=== PATIENT | female | born 1945 | race Hispanic/Latino ===

== ENCOUNTER 2024-10-07 15:36 | Inpatient (IN) | payer MEDICARE ==
[~2024-10-07] VITALS: Ht 157.5 cm; Wt 82.1 kg
[~2024-10-07 15:36] MED LIST: ARICEPT5 MG PO; ASPIRIN CHEW81 MG PO; ATORVASTATIN CA20 MG PO; DOXYCYCLINE HY100 MG PO; ELIQUIS2.5 MG PO; ELIQUIS5 MG PO; FLONASE ALLERG9.9 ML INH; LOPRESSOR25 MG PO; LOSARTAN POTASS25 MG PO; METOPROLOL SUCC25 MG PO; METOPROLOL TART25 MG PO; MIRALAX17 GM PO; NORVASC5 MG PO; OMEGA-3 KRILL1 EACH PO; SENNA PLUS 8.61 EACH PO; ULTRAM 50MG50 MG PO; ULTRAM50 MG PO; VITAMIN C WIT1000 MG PO
[2024-10-07 15:40] VITALS: TEMP 98.4
[2024-10-07 16:01] LABS: BASOPHILS % 0.2 % (0.0-1.0); EOSINOPHILS % 0.2 % (0.0-6.0); HEMATOCRIT 27.4 % (34.2-44.1); HEMOGLOBIN 8.3 g/dL (12.0-16.0); LYMPHOCYTES # (AUTO) 0.7 (1.0-3.2); LYMPHOCYTES % 7.3 % (18.0-39.1); MEAN CORPUSCULAR HEMOGLOBIN 29.9 pg (28-32); MEAN CORPUSCULAR HGB CONC 30.3 g/dL (31-35); MEAN CORPUSCULAR VOLUME 98.6 fL (81-99); MONOCYTES # (AUTO) 0.5 (0.2-0.8); MONOCYTES % 5.8 % (4.4-11.3); NEUTROPHILS # (AUTO) 7.7 (2.1-6.9); NEUTROPHILS % 85.7 % (38.7-80.0); PLATELET COUNT 234 x10e3/uL (140-360); RED BLOOD COUNT 2.78 x10e6/uL (3.6-5.1); RED CELL DISTRIBUTION WIDTH 14.8 % (11.7-14.4); WHITE BLOOD COUNT 8.98 x10e3/uL (4.8-10.8)
[2024-10-07 16:11] LABS: INR 1.97; PROTHROMBIN TIME 23.4 seconds (11.9-14.5)
[2024-10-07 16:12] LABS: PARTIAL THROMBOPLASTIN TIME 34.3 seconds (23.8-35.5)
[2024-10-07] MEDS ORDERED: SODIUM CHLORIDE 0.9% 1000ML 3,000 ML ONE (16:16)
[2024-10-07] MEDS: SODIUM CHLORIDE 0.9% 1000ML 2,450 ML IV SCH (16:19)
[2024-10-07 16:20] LABS: ALBUMIN 2.4 g/dL (3.5-5.0); ALBUMIN/GLOBULIN RATIO 0.9 (0.8-2.0); ANION GAP 15.9 mmol/L (8-16); BILIRUBIN,TOTAL 0.5 mg/dL (0.2-1.2); CALCIUM 7.6 mg/dL (8.4-10.2); CREATININE, SERUM 5.45 mg/dL (0.57-1.11); POTASSIUM 3.9 mmol/L (3.5-5.1)
[2024-10-07 17:10] LABS: BILIRUBIN,URINE NEGATIVE (NEGATIVE); CLARITY,URINE SL CLOUDY (CLEAR); COLOR,URINE YELLOW (YELLOW); GLUCOSE, URINE NEGATIVE (NEGATIVE); KETONES,URINE NEGATIVE (NEGATIVE); LEUKOCYTE ESTERASE ,URINE NEGATIVE (NEGATIVE); NITRITE,URINE POSITIVE (NEGATIVE); PH,URINE 5.5 (5 - 7); PROTEIN,URINE DIPSTICK 2+ (NEGATIVE); URINE UROBILINOGEN 0.2 mg/dL (0.2 - 1)
[2024-10-07 17:29] LABS: RBC,URINE 0-5 /HPF (0-5); WBC,URINE (MAN) 0-5 /HPF (0-5)
[2024-10-07 17:30] LABS: BACTERIA,URINE FEW /HPF; EPITHELIAL CELLS,URINE MANY /LPF
[2024-10-07] MEDS: VANCOMYCIN 1.25GM/250 ML (PEG) 250 ML IV ONE (17:32)
[2024-10-07] MEDS ORDERED: ONDANSETRON HCL INJ 2MG/ML 2ML 2 MG/ML VIAL IV PRN (18:00)
[2024-10-07] MEDS: SODIUM CHLORIDE 0.9% 1000ML 1,000 ML IV SCH (19:01)
[2024-10-07] MEDS: CALCIUM GLUC 1 G/50 ML NACL 100 ML IV ONE (19:01)
[2024-10-07 19:45] VITALS: PULSE 61; RESP 22
[2024-10-07 19:50] VITALS: BP 125/55; PULSE 60; RESP 20; TEMP 97.2; O2SAT 93
[2024-10-07 20:00] VITALS: BP_SYST 125; BP_SYST 127; BP_DIAS 55; BP_DIAS 93; PULSE 60; RESP 20; TEMP 97.2; TEMP 97.5; O2SAT 100; O2SAT 93
[2024-10-07] MEDS ORDERED: TOPROL XL25 MG PO (21:06)
[2024-10-07] MEDS ORDERED: ACETAMINOPHEN 325 MG TAB PO PRN (23:00)
[2024-10-07] MEDS ORDERED: POLYETHYLENE GLYCOL 3350 17 GM PACK PO PRN (23:00)
[2024-10-08] VITALS: BP 142/60; PULSE 89; RESP 19; TEMP 97.4; O2SAT 96
[2024-10-08 04:00] VITALS: BP 153/66; PULSE 62; RESP 19; TEMP 97.2; O2SAT 99
[2024-10-08 06:02] LABS: BASOPHILS # (AUTO) 0.1 (0.0-0.1); BASOPHILS % 0.5 % (0.0-1.0); EOSINOPHILS # (AUTO) 0.1 (0.0-0.4); EOSINOPHILS % 0.5 % (0.0-6.0); HEMATOCRIT 33.6 % (34.2-44.1); HEMOGLOBIN 9.3 g/dL (12.0-16.0); LYMPHOCYTES # (AUTO) 0.9 (1.0-3.2); LYMPHOCYTES % 8.9 % (18.0-39.1); MEAN CORPUSCULAR HGB CONC 27.7 g/dL (31-35); MEAN CORPUSCULAR VOLUME 108.4 fL (81-99); MONOCYTES # (AUTO) 0.7 (0.2-0.8); MONOCYTES % 6.6 % (4.4-11.3); NEUTROPHILS # (AUTO) 8.2 (2.1-6.9); NEUTROPHILS % 82.9 % (38.7-80.0); PLATELET COUNT 222 x10e3/uL (140-360); WHITE BLOOD COUNT 9.83 x10e3/uL (4.8-10.8)
[2024-10-08 06:30] LABS: ALBUMIN 2.5 g/dL (3.5-5.0); ANION GAP 18.1 mmol/L (8-16); BILIRUBIN,TOTAL 0.6 mg/dL (0.2-1.2); CALCIUM 7.6 mg/dL (8.4-10.2); CREATININE, SERUM 5.65 mg/dL (0.57-1.11); POTASSIUM 4.1 mmol/L (3.5-5.1)
[2024-10-08 08:00] VITALS: BP 153/66; PULSE 62; RESP 19; TEMP 97.2; O2SAT 99
[2024-10-08 08:18] VITALS: BP 142/78; PULSE 61; RESP 16; TEMP 98.4; O2SAT 97
[2024-10-08] MEDS ORDERED: NON-FORMULARY MEDICATION (Fluticasone Propionate* (Flonase Allergy Relief*) 1 EACH) INH SCH (09:00)
[2024-10-08] MEDS: METOPROLOL SUCCINATE 25 MG TAB XL PO SCH (09:15)
[2024-10-08] MEDS: APIXABAN 5 MG TABLET PO SCH (09:15)
[2024-10-08] MEDS: FLUTICASONE PROPIONATE NASAL SPRAY NS SCH (11:05)
[2024-10-08 12:05] VITALS: BP 167/64; PULSE 58; RESP 15; TEMP 98.1; O2SAT 99
[2024-10-08] MEDS: Morphine 2mg Syringe 2 MG/ML SYR IV PRN (14:24)
[2024-10-08 14:45] LABS: CREATININE,URINE RANDOM 104.31 mg/dL (47-110); TOTAL PROTEIN, URINE 79.4 mg/dL (1-14)
[2024-10-08 20:00] VITALS: BP 127/93; PULSE 60; RESP 16; TEMP 97.5; O2SAT 100
[2024-10-08] MEDS: DONEPEZIL HCL 5 MG TAB PO SCH (20:20)
[2024-10-08] MEDS: ATORVASTATIN 20 MG TAB PO SCH (20:20)
[2024-10-08 23:44] LABS: % IRON SATURATION 27 % (15-50); IRON 53 ug/dL (50-170); TOTAL IRON BINDING CAPACITY 199 ug/dL (261-478); TRANSFERRIN 142 mg/dL (180-382)
[2024-10-09 04:00] VITALS: BP 136/56; PULSE 60; RESP 18; TEMP 97.5; O2SAT 100
[2024-10-09 06:20] LABS: ANION GAP 19.2 mmol/L (8-16); CALCIUM 7.9 mg/dL (8.4-10.2); CREATININE, SERUM 6.35 mg/dL (0.57-1.11); POTASSIUM 4.2 mmol/L (3.5-5.1)
[2024-10-09 06:55] LABS: MAGNESIUM 1.9 MG/DL (1.3-2.1); PHOSPHORUS 7.6 MG/DL (2.3-4.7)
[2024-10-09 08:46] VITALS: BP 154/62; PULSE 61; RESP 17; TEMP 97.4; O2SAT 100
[2024-10-09 10:49] VITALS: BP 154/62; PULSE 61; RESP 17; TEMP 97.4; O2SAT 100
[2024-10-09 11:49] VITALS: BP 146/59; PULSE 60; RESP 16; TEMP 97.9; O2SAT 98
[2024-10-09 14:22] LABS: ABG HCO3 27 mmol/L (22-26); ABG PCO2 41 mmHg (35-45); ABG PH 7.42 (7.35-7.45); ABG PO2 208 mmHg (80-105); ABG TCO2 28
[2024-10-09 15:05] VITALS: BP 144/58; PULSE 60; RESP 16; TEMP 97.7; O2SAT 98
[2024-10-09] MEDS ORDERED: HEPARIN SOD (PORCINE) 1000 UNIT/ML SDV ONE (17:14)
[2024-10-09] MEDS ORDERED: LIDOCAINE HCL 1% 30ML-PF VIAL ONE (17:16)
[2024-10-09] MEDS: SODIUM BICARBONATE 8.4% VIAL 150 ML in DEXTROSE 5% 1,000 ML IV SCH (18:09)
[2024-10-09 20:00] VITALS: BP 151/70; PULSE 63; RESP 16; TEMP 97.3; O2SAT 99
[2024-10-09] MEDS: CYANOCOBALAMIN 1,000 MCG TAB PO ONE (23:55)
[2024-10-10 05:32] LABS: ANION GAP 19.2 mmol/L (8-16); CALCIUM 7.5 mg/dL (8.4-10.2); CREATININE, SERUM 7.18 mg/dL (0.57-1.11); POTASSIUM 4.2 mmol/L (3.5-5.1)
[2024-10-10 07:34] LABS: ABG HCO3 13 mmol/L (22-26); ABG PCO2 28 mmHg (35-45); ABG PH 7.28 (7.35-7.45); ABG PO2 155 mmHg (80-105); ABG TCO2 14
[2024-10-10] MEDS ORDERED: MANNITOL 25% 12.5GM/50 ML VIAL IV PRN (09:00)
[2024-10-10] MEDS ORDERED: SODIUM CHLORIDE 0.9% 1000ML 2,000 ML IV PRN (09:00)
[2024-10-10 09:20] VITALS: BP 151/70; PULSE 63; RESP 16; TEMP 97.3; O2SAT 99
[2024-10-10 09:56] VITALS: BP 169/73; PULSE 61; RESP 22; TEMP 98.1; O2SAT 100
[2024-10-10] MEDS: CYANOCOBALAMIN 1,000 MCG TAB PO SCH (10:40)
[2024-10-10] MEDS: AMIODARONE HCL 200 MG TAB PO SCH (10:41)
[2024-10-10] MEDS: HEPARIN SOD (PORCINE) 1000 UNIT/ML SDV IV PRN (13:23)
[2024-10-10 14:02] VITALS: BP 149/79; PULSE 60; RESP 18; TEMP 98; O2SAT 99
[2024-10-10 18:49] VITALS: BP 100/62; PULSE 64; RESP 16; TEMP 97.8; O2SAT 99
[2024-10-10 20:00] VITALS: BP_SYST 100; BP_SYST 130; BP_DIAS 62; BP_DIAS 89; PULSE 64; PULSE 82; RESP 16; RESP 18; TEMP 97.5; TEMP 97.8; O2SAT 95; O2SAT 99
[2024-10-10] MEDS: QUETIAPINE FUMARATE 25 MG TAB PO PRN (20:58)
[2024-10-11] VITALS (8 sets, daily range): BP systolic 119–162; BP diastolic 60–119; PULSE 60–89; RESP 18–19; TEMP 97.5–98.3; O2SAT 95–98
[2024-10-11 11:21] LABS: ANION GAP 18.9 mmol/L (8-16); CALCIUM 7.7 mg/dL (8.4-10.2); CREATININE, SERUM 6.77 mg/dL (0.57-1.11); POTASSIUM 3.9 mmol/L (3.5-5.1)
[2024-10-11] MEDS ORDERED: LACTATED RINGER'S 1,000 ML IV ONE (17:15)
[2024-10-11] MEDS: HYDRALAZINE HCL 20 MG/ML VIAL IV PRN (21:13)
[2024-10-11] MEDS: APIXABAN 5 MG TABLET PO SCH (21:13)
[2024-10-11] MEDS: LACTATED RINGER'S 1,000 ML IV ONE (21:13)
[2024-10-12] VITALS (8 sets, daily range): BP systolic 108–150; BP diastolic 48–80; PULSE 79–99; RESP 15–22; TEMP 97.4–98.1; O2SAT 95–100
[2024-10-12 06:10] LABS: COMPLEMENT C3 63 mg/dL (82-167)
[2024-10-12 06:53] LABS: COMPLEMENT C4 11 mg/dL (12-38); HEPATITIS B SURFACE AB QUANT <3.5 mIU/mL (Immunity>10); HEPATITIS BE ANTIGEN Negative (Negative)
[2024-10-12 07:59] LABS: ANION GAP 17.3 mmol/L (8-16); CALCIUM 7.9 mg/dL (8.4-10.2); CREATININE, SERUM 4.6 mg/dL (0.57-1.11)
[2024-10-12 08:00] LABS: POTASSIUM 3.3 mmol/L (3.5-5.1)
[2024-10-13] VITALS (8 sets, daily range): BP systolic 107–169; BP diastolic 58–92; PULSE 75–94; RESP 16–20; TEMP 96.7–98.9; O2SAT 96–100
[2024-10-13 05:58] LABS: HEPATITIS BE ANTIBODY Non Reactive (Negative)
[2024-10-13 06:00] LABS: ANTI DNA DS ANTIBODY <1 IU/mL (0-9)
[2024-10-13] MEDS: DEXTROSE 50% SYRINGE 50 ML IV PRN (07:32)
[2024-10-13 08:08] LABS: ANION GAP 14.5 mmol/L (8-16); CALCIUM 7.8 mg/dL (8.4-10.2); CREATININE, SERUM 3.05 mg/dL (0.57-1.11); POTASSIUM 3.5 mmol/L (3.5-5.1)
[2024-10-13] MEDS ORDERED: FENTANYL CITRATE/PF 100MCG/2 ML INJ ONE (10:11)
[2024-10-13] MEDS ORDERED: SODIUM CHLORIDE 0.9% 250ML 250 ML ONE (10:12)
[2024-10-13] MEDS ORDERED: HEPARIN SOD (PORCINE) 1000 UNIT/ML SDV ONE (10:13)
[2024-10-13] MEDS ORDERED: MIDAZOLAM HCL 2 MG/2 ML VIAL ONE (10:13)
[2024-10-13] MEDS ORDERED: SODIUM CHLORIDE 0.9% 500ML 500 ML ONE (10:33)
[2024-10-13] MEDS ORDERED: LIDOCAINE HCL 1% 30ML-PF VIAL ONE (10:33)
[2024-10-13 15:12] LABS: cANCA TITER <1:20 titer (Neg:<1:20)
[2024-10-13 17:54] LABS: ATYPICAL pANCA TITER <1:20 titer (Neg:<1:20); pANCA TITER <1:20 titer (Neg:<1:20)
[2024-10-14] VITALS (7 sets, daily range): BP systolic 128–146; BP diastolic 67–97; PULSE 87–95; RESP 17–19; TEMP 97.5–98.2; O2SAT 99–100
[2024-10-14 07:46] LABS: HEPATITIS B SURFACE AG (P) Negative (Negative)
[2024-10-14 08:31] LABS: BASOPHILS % 0.5 % (0.0-1.0); EOSINOPHILS # (AUTO) 0.1 (0.0-0.4); EOSINOPHILS % 2.2 % (0.0-6.0); HEMATOCRIT 30.5 % (34.2-44.1); LYMPHOCYTES % 15.4 % (18.0-39.1); MEAN CORPUSCULAR HEMOGLOBIN 29.5 pg (28-32); MEAN CORPUSCULAR HGB CONC 29.5 g/dL (31-35); MONOCYTES # (AUTO) 0.6 (0.2-0.8); MONOCYTES % 8.5 % (4.4-11.3); NEUTROPHILS # (AUTO) 4.8 (2.1-6.9); NEUTROPHILS % 72.9 % (38.7-80.0); PLATELET COUNT 158 x10e3/uL (140-360); RED BLOOD COUNT 3.05 x10e6/uL (3.6-5.1); RED CELL DISTRIBUTION WIDTH 14.8 % (11.7-14.4)
[2024-10-14 08:54] LABS: ANION GAP 14.6 mmol/L (8-16); CALCIUM 7.7 mg/dL (8.4-10.2); CREATININE, SERUM 4.15 mg/dL (0.57-1.11); POTASSIUM 3.6 mmol/L (3.5-5.1)
[2024-10-14] MEDS ORDERED: ALBUMIN 25% 12.5GM 0.25 GM/ML BTL IV PRN (13:30)
[2024-10-14] MEDS ORDERED: HEPARIN SOD (PORCINE) 1000 UNIT/ML SDV IV PRN (13:30)
[2024-10-15] VITALS (8 sets, daily range): BP systolic 111–143; BP diastolic 66–93; PULSE 77–103; RESP 17–20; TEMP 97.5–98.2; O2SAT 94–100
[2024-10-16 04:00] VITALS: BP 145/76; PULSE 97; RESP 18; TEMP 97.7; O2SAT 100
[2024-10-16 05:59] LABS: SPE TOTAL PROTEIN 4.1
[2024-10-16 08:00] VITALS: BP 155/97; PULSE 97; RESP 18; TEMP 98.1; O2SAT 98
[2024-10-16 08:30] VITALS: BP 155/97; PULSE 97; RESP 18; TEMP 98.1; O2SAT 98
[2024-10-16 08:35] LABS: ANION GAP 15.8 mmol/L (8-16); CALCIUM 8.3 mg/dL (8.4-10.2); CREATININE, SERUM 3.65 mg/dL (0.57-1.11); POTASSIUM 3.8 mmol/L (3.5-5.1)
[2024-10-16] MEDS ORDERED: SODIUM CHLORIDE 0.9% 1000ML 2,000 ML IV PRN (10:15)
[2024-10-16] MEDS ORDERED: HEPARIN SOD (PORCINE) 1000 UNIT/ML SDV IV PRN (10:15)
[2024-10-16 11:00] VITALS: BP 144/95; PULSE 101; RESP 20; TEMP 98.3; O2SAT 100
[2024-10-16] MEDS ORDERED: FLONASE ALLERG9.9 ML INH (11:55)
[2024-10-16] MEDS ORDERED: NORVASC5 MG PO (11:55)
[2024-10-16] MEDS ORDERED: AMIODARONE HCL200 MG PO (11:55)
[2024-10-16 16:00] VITALS: BP 144/93; PULSE 101; RESP 18; TEMP 97.8; O2SAT 100
[2024-10-16] MEDS: AMLODIPINE BESYLATE 5 MG TAB PO ONE ×2 (17:08)
[2024-10-16 18:45] LABS: SPE ALPHA 1 GLOBULIN 0.3; SPE ALPHA 2 GLOBULIN 0.7; SPE GAMMA GLOBULIN 0.8
[2024-10-16 18:46] LABS: GLOBULIN TOTAL 2.3; KAPPA LIGHT CHAINS 111.2; KAPPA/LAMBDA RATIO 1.37; LAMBDA LIGHT CHAINS 81.4
[2024-10-16 18:47] LABS: A/G RATIO 0.8
[2024-10-17] MEDS ORDERED: AMLODIPINE BESYLATE 5 MG TAB PO SCH (09:00)
== END 2024-10-16 18:20 | DRG 871 ==
LOC: ER 16:00 → ERHOLD 17:56 → MED/SURG 20:09
PROVIDERS: ADMIT Internal Medicine; ATTEND Internal Medicine
PROC: 3E0333Z Introduction of Anti-inflammatory into Peripheral Vein, Percutaneous Approach (ICD-10-PCS; 2024-10-07)
PROC: 4A133R1 Monitoring of Arterial Saturation, Peripheral, Percutaneous Approach (ICD-10-PCS; principal; 2024-10-08)
PROC: 02H633Z Insertion of Infusion Device into Right Atrium, Percutaneous Approach (ICD-10-PCS; 2024-10-09)
PROC: 5A1D70Z Performance of Urinary Filtration, Intermittent, Less than 6 Hours Per Day (ICD-10-PCS; 2024-10-10)
PROC: 02H633Z Insertion of Infusion Device into Right Atrium, Percutaneous Approach (ICD-10-PCS; 2024-10-13)
PROC: 0JH63XZ Insertion of Tunneled Vascular Access Device into Chest Subcutaneous Tissue and Fascia, Percutaneous Approach (ICD-10-PCS; 2024-10-13)
DX: A41.9 Sepsis, unspecified organism (principal); G92.8 Other toxic encephalopathy; R65.21 Severe sepsis with septic shock; R57.1 Hypovolemic shock; N17.0 Acute kidney failure with tubular necrosis; J18.9 Pneumonia, unspecified organism; E87.20 Acidosis, unspecified; F03.911 Unspecified dementia, unspecified severity, with agitation; F03.94 Unspecified dementia, unspecified severity, with anxiety; R62.7 Adult failure to thrive; F32.A Depression, unspecified; K21.9 Gastro-esophageal reflux disease without esophagitis; E11.22 Type 2 diabetes mellitus with diabetic chronic kidney disease; I12.9 Hypertensive chronic kidney disease with stage 1 through stage 4 chronic kidney disease, or unspecified chronic kidney disease; K81.9 Cholecystitis, unspecified; D63.1 Anemia in chronic kidney disease; E86.1 Hypovolemia; I48.0 Paroxysmal atrial fibrillation; N18.30 Chronic kidney disease, stage 3 unspecified; Z79.01 Long term (current) use of anticoagulants; Z79.82 Long term (current) use of aspirin; Z79.51 Long term (current) use of inhaled steroids; Z96.89 Presence of other specified functional implants; Z95.0 Presence of cardiac pacemaker; Z88.5 Allergy status to narcotic agent
CPT/HCPCS: 36415; 36556; 36558; 70450; 71045; 74176; 74470; 76770; 76937; 77001; 80048; 80053; 81001; 81015; 82550; 82570; 82607; 82746; 82805; 82948; 83540; 83605; 83735; 84100; 84156; 84165; 84466; 85025; 85045; 85610; 85730; 86021; 86039; 86160; 86225; 86706; 86707; 87040; 87086; 87340; 87350; 90962; 93005; 99152; 99284; C1752; C1769; C1892; J0360; J0690; J1644; J2003; J2250; J2270; J2543; J7030; J7040; J7050; J7070; J7799

== ENCOUNTER 2024-10-29 16:36 | Inpatient (IN) | payer MEDICARE ==
[~2024-10-29] VITALS: Ht 165.1 cm; Wt 75.0 kg
[~2024-10-29 16:36] MED LIST changes: +AMIODARONE HCL200 MG PO; +TOPROL XL25 MG PO
[2024-10-29 16:41] VITALS: TEMP 98
[2024-10-29 17:04] LABS: BASOPHILS # (AUTO) 0.1 (0.0-0.1); BASOPHILS % 0.8 % (0.0-1.0); EOSINOPHILS # (AUTO) 0.2 (0.0-0.4); EOSINOPHILS % 2.2 % (0.0-6.0); HEMATOCRIT 30.9 % (34.2-44.1); HEMOGLOBIN 9.7 g/dL (12.0-16.0); LYMPHOCYTES % 27.4 % (18.0-39.1); MEAN CORPUSCULAR HEMOGLOBIN 29.8 pg (28-32); MEAN CORPUSCULAR HGB CONC 31.4 g/dL (31-35); MEAN CORPUSCULAR VOLUME 95.1 fL (81-99); MONOCYTES # (AUTO) 0.7 (0.2-0.8); MONOCYTES % 9.7 % (4.4-11.3); NEUTROPHILS # (AUTO) 4.3 (2.1-6.9); NEUTROPHILS % 59.3 % (38.7-80.0); PLATELET COUNT 146 x10e3/uL (140-360); RED BLOOD COUNT 3.25 x10e6/uL (3.6-5.1); RED CELL DISTRIBUTION WIDTH 15.1 % (11.7-14.4); WHITE BLOOD COUNT 7.25 x10e3/uL (4.8-10.8)
[2024-10-29 17:34] LABS: ALBUMIN 2.9 g/dL (3.5-5.0); ALBUMIN/GLOBULIN RATIO 0.8 (0.8-2.0); ANION GAP 14.7 mmol/L (8-16); BILIRUBIN,TOTAL 1.4 mg/dL (0.2-1.2); CALCIUM 8.8 mg/dL (8.4-10.2); CREATININE, SERUM 2.83 mg/dL (0.57-1.11); POTASSIUM 3.7 mmol/L (3.5-5.1); TOTAL PROTEIN 6.5 g/dL (6.5-8.1)
[2024-10-29] MEDS ORDERED: SODIUM CHLORIDE FLUSH 10 ML SYR INJ PRN (18:30)
[2024-10-29] MEDS ORDERED: ONDANSETRON HCL INJ 2MG/ML 2ML 2 MG/ML VIAL IV PRN (18:30)
[2024-10-29 19:00] VITALS: PULSE 58; RESP 18
[2024-10-29 20:20] VITALS: BP 118/54; PULSE 63; RESP 18; TEMP 97.8; O2SAT 100
[2024-10-29 23:45] VITALS: BP 153/65; PULSE 63; RESP 18; TEMP 97.8; O2SAT 98
[2024-10-29 23:59] VITALS: BP 153/65; PULSE 63; RESP 18; TEMP 97.8; O2SAT 98
[2024-10-30] VITALS (10 sets, daily range): BP systolic 112–177; BP diastolic 51–64; PULSE 66–109; RESP 16–18; TEMP 97.7–98.6; O2SAT 98–100
[2024-10-30] MEDS ORDERED: MIRTAZAPINE7.5 MG PO (02:01)
[2024-10-30] MEDS ORDERED: NYSTATIN1 EAC4 TOP (02:01)
[2024-10-30] MEDS ORDERED: METOPROLOL TART25 MG PO (02:01)
[2024-10-30 05:06] LABS: BASOPHILS % 0.6 % (0.0-1.0); EOSINOPHILS # (AUTO) 0.1 (0.0-0.4); EOSINOPHILS % 1.9 % (0.0-6.0); HEMATOCRIT 28.7 % (34.2-44.1); HEMOGLOBIN 9.2 g/dL (12.0-16.0); LYMPHOCYTES # (AUTO) 1.8 (1.0-3.2); LYMPHOCYTES % 24.5 % (18.0-39.1); MEAN CORPUSCULAR HEMOGLOBIN 29.3 pg (28-32); MEAN CORPUSCULAR HGB CONC 32.1 g/dL (31-35); MEAN CORPUSCULAR VOLUME 91.4 fL (81-99); MONOCYTES # (AUTO) 0.7 (0.2-0.8); MONOCYTES % 9.6 % (4.4-11.3); NEUTROPHILS # (AUTO) 4.5 (2.1-6.9); NEUTROPHILS % 62.8 % (38.7-80.0); PLATELET COUNT 151 x10e3/uL (140-360); RED BLOOD COUNT 3.14 x10e6/uL (3.6-5.1); RED CELL DISTRIBUTION WIDTH 15.4 % (11.7-14.4); WHITE BLOOD COUNT 7.21 x10e3/uL (4.8-10.8)
[2024-10-30 05:33] LABS: ALBUMIN 2.8 g/dL (3.5-5.0); ALBUMIN/GLOBULIN RATIO 0.8 (0.8-2.0); ANION GAP 14.5 mmol/L (8-16); BILIRUBIN,TOTAL 1.5 mg/dL (0.2-1.2); CALCIUM 8.8 mg/dL (8.4-10.2); CREATININE, SERUM 2.65 mg/dL (0.57-1.11); POTASSIUM 3.5 mmol/L (3.5-5.1); TOTAL PROTEIN 6.2 g/dL (6.5-8.1)
[2024-10-30 06:05] LABS: TROPONIN I 0.006 ng/mL (0-0.300)
[2024-10-30] MEDS ORDERED: POLYETHYLENE GLYCOL 3350 17 GM PACK PO PRN ×2 (07:15→13:45)
[2024-10-30] MEDS ORDERED: DEXTROSE 50% SYRINGE 50 ML IV PRN (08:00)
[2024-10-30] MEDS: APIXABAN 5 MG TABLET PO SCH (08:22)
[2024-10-30] MEDS: AMLODIPINE BESYLATE 5 MG TAB PO SCH (08:23)
[2024-10-30] MEDS: AMIODARONE HCL 200 MG TAB PO SCH (08:23)
[2024-10-30] MEDS ORDERED: ACETAMINOPHEN 325 MG TAB PO PRN (13:45)
[2024-10-30] MEDS ORDERED: BISACODYL 10 MG SUPP PR PRN (13:45)
[2024-10-30 14:08] LABS: TROPONIN I 0.011 ng/mL (0-0.300)
[2024-10-30 14:58] LABS: ANION GAP 15.1 mmol/L (8-16); CREATININE, SERUM 2.68 mg/dL (0.57-1.11); POTASSIUM 4.1 mmol/L (3.5-5.1)
[2024-10-30] MEDS: POTASSIUM CHLORIDE 10MEQ EA PO ONE (20:00)
[2024-10-30] MEDS: POTASSIUM CHLORIDE 20 MEQ TAB CR PO ONE (20:01)
[2024-10-30] MEDS: ATORVASTATIN 20 MG TAB PO SCH (22:18)
[2024-10-30] MEDS: DONEPEZIL HCL 5 MG TAB PO SCH (22:20)
[2024-10-30] MEDS: MIRTAZAPINE 15 MG TAB PO SCH ×2 (22:20→22:21)
[2024-10-31] MEDS: METOPROLOL SUCCINATE 25 MG TAB XL PO ONE (01:44)
[2024-10-31 08:00] VITALS: BP 114/48; PULSE 67; RESP 19; TEMP 98.5; O2SAT 99
[2024-10-31] MEDS: METOPROLOL SUCCINATE 25 MG TAB XL PO SCH (09:00)
[2024-10-31 09:10] VITALS: BP 114/48; PULSE 67; RESP 19; TEMP 98.5; O2SAT 99
[2024-10-31 09:44] LABS: BASOPHILS # (AUTO) 0.1 (0.0-0.1); BASOPHILS % 0.6 % (0.0-1.0); EOSINOPHILS # (AUTO) 0.1 (0.0-0.4); EOSINOPHILS % 1.2 % (0.0-6.0); HEMATOCRIT 30.6 % (34.2-44.1); HEMOGLOBIN 9.7 g/dL (12.0-16.0); LYMPHOCYTES # (AUTO) 1.9 (1.0-3.2); LYMPHOCYTES % 19.5 % (18.0-39.1); MEAN CORPUSCULAR HEMOGLOBIN 29.9 pg (28-32); MEAN CORPUSCULAR HGB CONC 31.7 g/dL (31-35); MEAN CORPUSCULAR VOLUME 94.4 fL (81-99); MONOCYTES # (AUTO) 0.7 (0.2-0.8); MONOCYTES % 7.5 % (4.4-11.3); NEUTROPHILS # (AUTO) 6.8 (2.1-6.9); NEUTROPHILS % 70.8 % (38.7-80.0); PLATELET COUNT 176 x10e3/uL (140-360); RED BLOOD COUNT 3.24 x10e6/uL (3.6-5.1); RED CELL DISTRIBUTION WIDTH 15.2 % (11.7-14.4); WHITE BLOOD COUNT 9.63 x10e3/uL (4.8-10.8)
[2024-10-31] MEDS: SENNOSIDES 8.6 MG TAB PO SCH (09:48)
[2024-10-31] MEDS: DOCUSATE SODIUM 100 MG CAP PO SCH (09:48)
[2024-10-31 10:42] LABS: ALBUMIN 2.9 g/dL (3.5-5.0); ALBUMIN/GLOBULIN RATIO 0.9 (0.8-2.0); ANION GAP 15.6 mmol/L (8-16); CALCIUM 8.6 mg/dL (8.4-10.2); CREATININE, SERUM 2.81 mg/dL (0.57-1.11); POTASSIUM 3.6 mmol/L (3.5-5.1); TOTAL PROTEIN 6.2 g/dL (6.5-8.1)
[2024-10-31 12:31] VITALS: BP 129/56; PULSE 64; RESP 17; TEMP 98.1; O2SAT 98
[2024-10-31 16:00] VITALS: BP 128/51; PULSE 62; RESP 20; TEMP 98.7; O2SAT 99
[2024-11-01 00:12] VITALS: BP 130/45; PULSE 69; RESP 18; TEMP 98; O2SAT 98
[2024-11-01 08:00] VITALS: BP 131/52; PULSE 69; RESP 19; TEMP 98.1; O2SAT 100
[2024-11-01 08:47] LABS: ANION GAP 15.3 mmol/L (8-16); CALCIUM 8.2 mg/dL (8.4-10.2); CREATININE, SERUM 2.88 mg/dL (0.57-1.11)
[2024-11-01 08:48] LABS: POTASSIUM 3.3 mmol/L (3.5-5.1)
[2024-11-01 09:00] VITALS: BP 131/52; PULSE 69; RESP 19; TEMP 98.1; O2SAT 100
[2024-11-01 12:00] VITALS: BP 115/69; PULSE 80; RESP 19; TEMP 98.4; O2SAT 100
[2024-11-01 16:00] VITALS: BP 100/68; PULSE 60; RESP 20; TEMP 98.3; O2SAT 99
[2024-11-01 20:00] VITALS: BP 113/52; PULSE 104; RESP 18; TEMP 98.1; O2SAT 96
[2024-11-01] MEDS: APIXABAN 5 MG TABLET PO SCH (23:30)
[2024-11-02] VITALS (7 sets, daily range): BP systolic 101–121; BP diastolic 50–71; PULSE 80–99; RESP 17–20; TEMP 97–99.2; O2SAT 98–100
[2024-11-02 09:32] LABS: ANION GAP 14.3 mmol/L (8-16); CALCIUM 8.3 mg/dL (8.4-10.2); CREATININE, SERUM 2.91 mg/dL (0.57-1.11)
[2024-11-02 09:42] LABS: POTASSIUM 3.3 mmol/L (3.5-5.1)
[2024-11-02] MEDS: METOPROLOL SUCCINATE 25 MG TAB XL PO STA (12:57)
[2024-11-02] MEDS: METOPROLOL SUCCINATE 25 MG TAB XL PO SCH (21:10)
[2024-11-03] VITALS (7 sets, daily range): BP systolic 107–128; BP diastolic 54–68; PULSE 73–88; RESP 17–18; TEMP 97.3–98.4; O2SAT 95–98
[2024-11-03 06:29] LABS: WHITE BLOOD COUNT 6.95 x10e3/uL (4.8-10.8)
[2024-11-03 06:30] LABS: BASOPHILS # (AUTO) 0.1 (0.0-0.1); BASOPHILS % 0.9 % (0.0-1.0); EOSINOPHILS # (AUTO) 0.2 (0.0-0.4); EOSINOPHILS % 2.6 % (0.0-6.0); HEMATOCRIT 28.5 % (34.2-44.1); HEMOGLOBIN 9.4 g/dL (12.0-16.0); LYMPHOCYTES # (AUTO) 2.2 (1.0-3.2); LYMPHOCYTES % 31.9 % (18.0-39.1); MEAN CORPUSCULAR HEMOGLOBIN 29.9 pg (28-32); MEAN CORPUSCULAR VOLUME 90.8 fL (81-99); MONOCYTES # (AUTO) 0.6 (0.2-0.8); MONOCYTES % 9.2 % (4.4-11.3); NEUTROPHILS # (AUTO) 3.8 (2.1-6.9); NEUTROPHILS % 54.8 % (38.7-80.0); PLATELET COUNT 218 x10e3/uL (140-360); RED BLOOD COUNT 3.14 x10e6/uL (3.6-5.1); RED CELL DISTRIBUTION WIDTH 15.1 % (11.7-14.4)
[2024-11-03 07:02] LABS: ANION GAP 15.5 mmol/L (8-16); BLOOD UREA NITROGEN 15.63 mg/dL (7-26); CREATININE, SERUM 2.75 mg/dL (0.57-1.11); POTASSIUM 3.5 mmol/L (3.5-5.1)
[2024-11-03 07:03] LABS: ALBUMIN 2.5 g/dL (3.5-5.0); ALBUMIN/GLOBULIN RATIO 0.7 (0.8-2.0); BILIRUBIN,TOTAL 1.3 mg/dL (0.2-1.2); CALCIUM 8.4 mg/dL (8.4-10.2)
[2024-11-03] MEDS: NYSTATIN 15 GM POWDER UD BTL TOP SCH (17:38)
[2024-11-04] VITALS: BP 104/54; PULSE 95; RESP 17; TEMP 98.2; O2SAT 98
[2024-11-04 08:30] VITALS: BP 115/59; PULSE 96; RESP 14; TEMP 99.6; O2SAT 93
[2024-11-04 08:38] VITALS: BP 115/59; PULSE 96; RESP 14; TEMP 99.6; O2SAT 93
[2024-11-04 09:30] LABS: BASOPHILS # (AUTO) 0.1 (0.0-0.1); BASOPHILS % 0.8 % (0.0-1.0); EOSINOPHILS # (AUTO) 0.2 (0.0-0.4); EOSINOPHILS % 2.5 % (0.0-6.0); HEMATOCRIT 29.5 % (34.2-44.1); HEMOGLOBIN 9.4 g/dL (12.0-16.0); LYMPHOCYTES # (AUTO) 2.6 (1.0-3.2); LYMPHOCYTES % 35.9 % (18.0-39.1); MEAN CORPUSCULAR HGB CONC 31.9 g/dL (31-35); MEAN CORPUSCULAR VOLUME 94.2 fL (81-99); MONOCYTES # (AUTO) 0.7 (0.2-0.8); MONOCYTES % 9.2 % (4.4-11.3); NEUTROPHILS # (AUTO) 3.6 (2.1-6.9); PLATELET COUNT 198 x10e3/uL (140-360); RED BLOOD COUNT 3.13 x10e6/uL (3.6-5.1); RED CELL DISTRIBUTION WIDTH 15.2 % (11.7-14.4); WHITE BLOOD COUNT 7.15 x10e3/uL (4.8-10.8)
[2024-11-04 10:08] LABS: ANION GAP 15.7 mmol/L (8-16); CALCIUM 8.7 mg/dL (8.4-10.2); CREATININE, SERUM 2.76 mg/dL (0.57-1.11); MAGNESIUM 1.6 MG/DL (1.3-2.1); POTASSIUM 3.7 mmol/L (3.5-5.1)
[2024-11-04 11:36] VITALS: BP 106/64; PULSE 95; RESP 14; TEMP 98.3; O2SAT 95
[2024-11-04 20:00] VITALS: BP 123/70; PULSE 86; RESP 18; TEMP 98.2; O2SAT 100
[2024-11-05 04:00] VITALS: BP 125/60; PULSE 79; RESP 17; TEMP 98.1; O2SAT 98
[2024-11-05 05:37] LABS: ANION GAP 12.5 mmol/L (8-16); CALCIUM 8.4 mg/dL (8.4-10.2); CREATININE, SERUM 2.68 mg/dL (0.57-1.11); POTASSIUM 3.5 mmol/L (3.5-5.1)
[2024-11-05 08:04] VITALS: BP 105/61; PULSE 83; RESP 15; TEMP 98.2; O2SAT 100
[2024-11-05 08:07] VITALS: BP 105/61; PULSE 83; RESP 15; TEMP 98.2; O2SAT 100
[2024-11-05] MEDS: POTASSIUM CHLORIDE 20 MEQ TAB CR PO ONE (09:44)
[2024-11-05 11:50] VITALS: BP 106/59; PULSE 88; RESP 15; TEMP 98; O2SAT 95
[2024-11-05 15:51] VITALS: BP 121/50; PULSE 67; RESP 17; TEMP 98.3; O2SAT 95
[2024-11-05 20:00] VITALS: BP 129/58; PULSE 66; RESP 17; TEMP 97.9; O2SAT 100
[2024-11-06 04:00] VITALS: BP 145/61; PULSE 60; RESP 16; TEMP 97.8; O2SAT 100
[2024-11-06 05:28] LABS: CALCIUM 8.8 mg/dL (8.4-10.2)
[2024-11-06 05:50] LABS: CREATININE, SERUM 2.37 mg/dL (0.57-1.11)
[2024-11-06 08:00] VITALS: BP 133/88; PULSE 66; RESP 16; TEMP 98.9; O2SAT 95
[2024-11-06 08:33] VITALS: BP 133/88; PULSE 66; RESP 16; TEMP 98.9; O2SAT 95
[2024-11-06] MEDS ORDERED: LIDOCAINE HCL 1% 30ML-PF VIAL ONE (11:17)
[2024-11-06 12:00] VITALS: BP 127/56; PULSE 61; RESP 19; TEMP 97.9; O2SAT 100
[2024-11-06] MEDS: METRONIDAZOLE 500MG/NS 100ML 100 ML IV SCH (15:30)
[2024-11-06] MEDS: SODIUM CHLORIDE 0.9% 250ML 250 ML ONE (15:41)
[2024-11-06 16:00] VITALS: BP 126/59; PULSE 66; RESP 16; TEMP 98.6; O2SAT 100
[2024-11-06 20:00] VITALS: BP 136/52; PULSE 61; RESP 16; TEMP 98.6; O2SAT 100
[2024-11-07 04:04] VITALS: BP 146/51; PULSE 60; RESP 17; TEMP 97.6; O2SAT 100
[2024-11-07 05:11] LABS: BASOPHILS # (AUTO) 0.1 (0.0-0.1); BASOPHILS % 1.4 % (0.0-1.0); EOSINOPHILS # (AUTO) 0.2 (0.0-0.4); EOSINOPHILS % 2.6 % (0.0-6.0); HEMATOCRIT 28.9 % (34.2-44.1); LYMPHOCYTES # (AUTO) 1.7 (1.0-3.2); LYMPHOCYTES % 28.6 % (18.0-39.1); MEAN CORPUSCULAR HEMOGLOBIN 29.2 pg (28-32); MEAN CORPUSCULAR HGB CONC 31.1 g/dL (31-35); MEAN CORPUSCULAR VOLUME 93.8 fL (81-99); MONOCYTES # (AUTO) 0.4 (0.2-0.8); MONOCYTES % 7.5 % (4.4-11.3); NEUTROPHILS # (AUTO) 3.4 (2.1-6.9); NEUTROPHILS % 58.9 % (38.7-80.0); PLATELET COUNT 171 x10e3/uL (140-360); RED BLOOD COUNT 3.08 x10e6/uL (3.6-5.1); RED CELL DISTRIBUTION WIDTH 15.1 % (11.7-14.4); WHITE BLOOD COUNT 5.84 x10e3/uL (4.8-10.8)
[2024-11-07 05:54] LABS: CALCIUM 8.8 mg/dL (8.4-10.2); CREATININE, SERUM 2.31 mg/dL (0.57-1.11)
[2024-11-07 08:34] VITALS: BP 134/65; PULSE 75; RESP 16; TEMP 98.2; O2SAT 100
[2024-11-07 11:45] VITALS: BP 135/58; PULSE 59; RESP 16; TEMP 97.8; O2SAT 100
[2024-11-07] MEDS ORDERED: MIRALAX17 GM PO (13:00)
[2024-11-07] MEDS ORDERED: SENOKOT8.6 MG PO (13:00)
[2024-11-07] MEDS ORDERED: AUGMENTIN 500-1 EACH PO (13:00)
[2024-11-07] MEDS ORDERED: TOPROL XL25 MG PO (13:00)
[2024-11-07] MEDS ORDERED: MIRTAZAPINE15 MG PO (13:00)
[2024-11-07] MEDS ORDERED: AMOXICILLIN/CLAVULANATE K 500 MG TAB PO SCH (21:00)
== END 2024-11-07 18:35 | DRG 308 ==
LOC: ER 16:45 → ERHOLD 18:23 → MED/SURG 22:01 → OBSVTOIN 10-31 09:12
PROVIDERS: ADMIT Internal Medicine; ATTEND Internal Medicine
PROC: 02PYX3Z Removal of Infusion Device from Great Vessel, External Approach (ICD-10-PCS; principal; 2024-11-06)
PROC: 0JPTXXZ Removal of Tunneled Vascular Access Device from Trunk Subcutaneous Tissue and Fascia, External Approach (ICD-10-PCS; 2024-11-06)
DX: I48.0 Paroxysmal atrial fibrillation (principal); J18.9 Pneumonia, unspecified organism; N18.4 Chronic kidney disease, stage 4 (severe); N17.9 Acute kidney failure, unspecified; I12.9 Hypertensive chronic kidney disease with stage 1 through stage 4 chronic kidney disease, or unspecified chronic kidney disease; E11.22 Type 2 diabetes mellitus with diabetic chronic kidney disease; D63.1 Anemia in chronic kidney disease; K81.1 Chronic cholecystitis; E03.9 Hypothyroidism, unspecified; R55 Syncope and collapse; F41.9 Anxiety disorder, unspecified; I49.5 Sick sinus syndrome; E87.6 Hypokalemia; F32.A Depression, unspecified; K21.9 Gastro-esophageal reflux disease without esophagitis; E78.5 Hyperlipidemia, unspecified; F03.B0 Unspecified dementia, moderate, without behavioral disturbance, psychotic disturbance, mood disturbance, and anxiety; Z79.01 Long term (current) use of anticoagulants; Z79.51 Long term (current) use of inhaled steroids; Z96.89 Presence of other specified functional implants; Z95.0 Presence of cardiac pacemaker; Z88.5 Allergy status to narcotic agent
CPT/HCPCS: 36415; 36589; 71045; 74230; 74470; 80048; 80053; 82550; 82948; 83735; 83880; 84484; 85025; 93005; 93306; 99252; 99284; G0378; J0696; J2003; J7050

== ENCOUNTER 2024-11-12 04:28 | Emergency (ER) | payer MEDICARE ==
[~2024-11-12] VITALS: Ht 165.1 cm; Wt 74.8 kg
[~2024-11-12 04:28] MED LIST changes: +AUGMENTIN 500-1 EACH PO; +MIRTAZAPINE15 MG PO; +MIRTAZAPINE7.5 MG PO; +NYSTATIN1 EAC4 TOP; +SENOKOT8.6 MG PO
[2024-11-12 04:32] VITALS: RESP 16; TEMP 98.4
[2024-11-12 07:38] VITALS: PULSE 59; O2SAT 100
== END 2024-11-12 07:38 | disposition home or self-care (01) ==
LOC: ER 04:32
DX: M54.2 Cervicalgia (principal); S09.90XA Unspecified injury of head, initial encounter; W18.39XA Other fall on same level, initial encounter; Y92.89 Other specified places as the place of occurrence of the external cause; F03.90 Unspecified dementia, unspecified severity, without behavioral disturbance, psychotic disturbance, mood disturbance, and anxiety; I12.9 Hypertensive chronic kidney disease with stage 1 through stage 4 chronic kidney disease, or unspecified chronic kidney disease; E11.22 Type 2 diabetes mellitus with diabetic chronic kidney disease; N18.9 Chronic kidney disease, unspecified; E78.5 Hyperlipidemia, unspecified; I48.91 Unspecified atrial fibrillation; E03.9 Hypothyroidism, unspecified; D64.9 Anemia, unspecified; K21.9 Gastro-esophageal reflux disease without esophagitis; F41.9 Anxiety disorder, unspecified; F32.A Depression, unspecified; Z95.810 Presence of automatic (implantable) cardiac defibrillator
CPT/HCPCS: 70450; 72125; 72170; 99283

== ENCOUNTER 2024-11-14 15:08 | Inpatient (IN) | payer MEDICARE ==
[~2024-11-14] VITALS: Ht 165.1 cm; Wt 74.8 kg
[2024-11-14 15:20] VITALS: TEMP 98.6
[2024-11-14 15:56] LABS: BASOPHILS # (AUTO) 0.1 (0.0-0.1); BASOPHILS % 0.4 % (0.0-1.0); HEMATOCRIT 27.1 % (34.2-44.1); HEMOGLOBIN 8.9 g/dL (12.0-16.0); MEAN CORPUSCULAR HEMOGLOBIN 30.2 pg (28-32); MEAN CORPUSCULAR HGB CONC 32.8 g/dL (31-35); MEAN CORPUSCULAR VOLUME 91.9 fL (81-99); PLATELET COUNT 177 x10e3/uL (140-360); RED BLOOD COUNT 2.95 x10e6/uL (3.6-5.1); RED CELL DISTRIBUTION WIDTH 15.9 % (11.7-14.4); WHITE BLOOD COUNT 16.93 x10e3/uL (4.8-10.8)
[2024-11-14 16:11] LABS: LYMPHOCYTES % 17.1 % (18.0-39.1); NEUTROPHILS % 74.5 % (38.7-80.0)
[2024-11-14 16:12] LABS: EOSINOPHILS # (AUTO) 0.3 (0.0-0.4); EOSINOPHILS % 1.6 % (0.0-6.0); LYMPHOCYTES # (AUTO) 2.8 (1.0-3.2); MONOCYTES % 5.8 % (4.4-11.3); NEUTROPHILS # (AUTO) 12.2 (2.1-6.9)
[2024-11-14 16:19] LABS: ALBUMIN 2.5 g/dL (3.5-5.0); ALBUMIN/GLOBULIN RATIO 0.7 (0.8-2.0); ANION GAP 15.2 mmol/L (8-16); BILIRUBIN,TOTAL 1.3 mg/dL (0.2-1.2); CALCIUM 8.5 mg/dL (8.4-10.2); CREATININE, SERUM 2.19 mg/dL (0.57-1.11); POTASSIUM 4.2 mmol/L (3.5-5.1); TOTAL PROTEIN 6.1 g/dL (6.5-8.1)
[2024-11-14 17:49] LABS: BILIRUBIN,URINE NEGATIVE (NEGATIVE); CLARITY,URINE CLOUDY (CLEAR); COLOR,URINE YELLOW (YELLOW); GLUCOSE, URINE NEGATIVE (NEGATIVE); KETONES,URINE NEGATIVE (NEGATIVE); LEUKOCYTE ESTERASE ,URINE LARGE (NEGATIVE); NITRITE,URINE NEGATIVE (NEGATIVE); PH,URINE 5.5 (5 - 7); PROTEIN,URINE DIPSTICK 2+ (NEGATIVE); URINE UROBILINOGEN 0.2 mg/dL (0.2 - 1)
[2024-11-14 17:51] LABS: EPITHELIAL CELLS,URINE FEW /LPF; WBC,URINE (MAN) >50 /HPF (0-5)
[2024-11-14 17:52] VITALS: PULSE 62; RESP 18
[2024-11-14 17:52] LABS: BACTERIA,URINE MANY /HPF; YEAST,URINE MODERATE
[2024-11-14 18:30] VITALS: PULSE 72; RESP 18; O2SAT 100
[2024-11-14 20:00] VITALS: BP 123/48; PULSE 60; RESP 18; TEMP 98; O2SAT 100
[2024-11-14] MEDS: CEFTRIAXONE 2 GM in SODIUM CHLORIDE 0.9% 100 ML IV ONE (20:31)
[2024-11-14] MEDS: SODIUM CHLORIDE 0.9% 1000ML 1,000 ML IV SCH (20:31)
[2024-11-14 20:45] VITALS: BP 123/48; PULSE 60; RESP 18; TEMP 98; O2SAT 100
[2024-11-14 22:42] VITALS: BP 123/48; PULSE 60; RESP 18; TEMP 98; O2SAT 100
[2024-11-15] VITALS (9 sets, daily range): BP systolic 112–152; BP diastolic 49–65; PULSE 60–83; RESP 18–20; TEMP 98–98.7; O2SAT 97–100
[2024-11-15] MEDS ORDERED: POLYETHYLENE GL17 GM PO (00:30)
[2024-11-15] MEDS ORDERED: ONDANSETRON ODT4 MG PO (00:30)
[2024-11-15 06:42] LABS: BASOPHILS # (AUTO) 0.1 (0.0-0.1); BASOPHILS % 0.4 % (0.0-1.0); EOSINOPHILS # (AUTO) 0.4 (0.0-0.4); EOSINOPHILS % 2.7 % (0.0-6.0); HEMATOCRIT 27.6 % (34.2-44.1); HEMOGLOBIN 8.8 g/dL (12.0-16.0); LYMPHOCYTES # (AUTO) 2.1 (1.0-3.2); LYMPHOCYTES % 14.9 % (18.0-39.1); MEAN CORPUSCULAR HEMOGLOBIN 30.3 pg (28-32); MEAN CORPUSCULAR HGB CONC 31.9 g/dL (31-35); MEAN CORPUSCULAR VOLUME 95.2 fL (81-99); MONOCYTES # (AUTO) 0.7 (0.2-0.8); MONOCYTES % 5.2 % (4.4-11.3); NEUTROPHILS # (AUTO) 10.6 (2.1-6.9); NEUTROPHILS % 76.4 % (38.7-80.0); PLATELET COUNT 162 x10e3/uL (140-360); RED CELL DISTRIBUTION WIDTH 15.7 % (11.7-14.4); WHITE BLOOD COUNT 13.86 x10e3/uL (4.8-10.8)
[2024-11-15 07:07] LABS: ANION GAP 12.1 mmol/L (8-16); CALCIUM 8.5 mg/dL (8.4-10.2); CREATININE, SERUM 1.74 mg/dL (0.57-1.11); POTASSIUM 4.1 mmol/L (3.5-5.1)
[2024-11-15] MEDS ORDERED: POLYETHYLENE GLYCOL 3350 17 GM PACK PO PRN (09:15)
[2024-11-15] MEDS ORDERED: BISACODYL 10 MG SUPP PR PRN (09:15)
[2024-11-15] MEDS ORDERED: ONDANSETRON HCL INJ 2MG/ML 2ML 2 MG/ML VIAL IV PRN (09:15)
[2024-11-15] MEDS: METOPROLOL SUCCINATE 25 MG TAB XL PO SCH (11:25)
[2024-11-15] MEDS: SENNOSIDES 8.6 MG TAB PO SCH (11:25)
[2024-11-15] MEDS: APIXABAN 5 MG TABLET PO SCH (11:26)
[2024-11-15] MEDS: AMIODARONE HCL 200 MG TAB PO SCH (11:26)
[2024-11-15] MEDS: AMLODIPINE BESYLATE 5 MG TAB PO SCH (11:26)
[2024-11-15] MEDS: PAROXETINE HCL 20 MG TAB PO SCH (16:49)
[2024-11-15] MEDS ORDERED: DEXTROSE 50% SYRINGE 50 ML IV PRN (18:00)
[2024-11-15] MEDS: INSULIN LISPRO 100 UNIT/1 ML 3ML VIAL SQ SCH (21:00)
[2024-11-15] MEDS: DONEPEZIL HCL 5 MG TAB PO SCH (21:13)
[2024-11-15] MEDS: MIRTAZAPINE 15 MG TAB PO SCH (21:13)
[2024-11-15] MEDS: ATORVASTATIN 20 MG TAB PO SCH (21:13)
[2024-11-15] MEDS ORDERED: HEPARIN SOD (PORCINE) 5,000 UNIT/ML VIAL SC SCH (22:00)
[2024-11-16] VITALS (9 sets, daily range): BP systolic 112–161; BP diastolic 46–68; PULSE 61–81; RESP 16–20; TEMP 97.6–98.2; O2SAT 95–100
[2024-11-16 06:44] LABS: BASOPHILS % 0.4 % (0.0-1.0); EOSINOPHILS # (AUTO) 0.4 (0.0-0.4); HEMOGLOBIN 8.4 g/dL (12.0-16.0); LYMPHOCYTES # (AUTO) 2.1 (1.0-3.2); LYMPHOCYTES % 22.2 % (18.0-39.1); MEAN CORPUSCULAR HEMOGLOBIN 29.7 pg (28-32); MEAN CORPUSCULAR HGB CONC 32.3 g/dL (31-35); MEAN CORPUSCULAR VOLUME 91.9 fL (81-99); MONOCYTES # (AUTO) 0.5 (0.2-0.8); MONOCYTES % 5.3 % (4.4-11.3); NEUTROPHILS # (AUTO) 6.5 (2.1-6.9); NEUTROPHILS % 67.6 % (38.7-80.0); PLATELET COUNT 191 x10e3/uL (140-360); RED BLOOD COUNT 2.83 x10e6/uL (3.6-5.1); RED CELL DISTRIBUTION WIDTH 15.3 % (11.7-14.4); WHITE BLOOD COUNT 9.61 x10e3/uL (4.8-10.8)
[2024-11-16 07:09] LABS: ALBUMIN 2.2 g/dL (3.5-5.0); ALBUMIN/GLOBULIN RATIO 0.6 (0.8-2.0); ANION GAP 12.9 mmol/L (8-16); BILIRUBIN,TOTAL 0.6 mg/dL (0.2-1.2); CALCIUM 8.2 mg/dL (8.4-10.2); CREATININE, SERUM 1.62 mg/dL (0.57-1.11); MAGNESIUM 1.7 MG/DL (1.3-2.1); POTASSIUM 3.9 mmol/L (3.5-5.1); TOTAL PROTEIN 5.6 g/dL (6.5-8.1)
[2024-11-16 12:52] LABS: THYROID STIMULATING HORMONE 1.605 uIU/mL (0.350-4.940)
[2024-11-16] MEDS: FLUCONAZOLE 100 MG TAB PO SCH (13:57)
[2024-11-17] VITALS (9 sets, daily range): BP systolic 96–165; BP diastolic 49–62; PULSE 59–67; RESP 16–18; TEMP 97.4–98.4; O2SAT 96–100
[2024-11-17 05:41] LABS: RAPID PLASMA REAGIN Non Reactive (Non Reactive)
[2024-11-17 05:58] LABS: BASOPHILS # (AUTO) 0.1 (0.0-0.1); BASOPHILS % 0.7 % (0.0-1.0); EOSINOPHILS # (AUTO) 0.3 (0.0-0.4); EOSINOPHILS % 2.9 % (0.0-6.0); HEMATOCRIT 29.3 % (34.2-44.1); HEMOGLOBIN 9.5 g/dL (12.0-16.0); LYMPHOCYTES # (AUTO) 1.5 (1.0-3.2); LYMPHOCYTES % 15.4 % (18.0-39.1); MEAN CORPUSCULAR HGB CONC 32.4 g/dL (31-35); MEAN CORPUSCULAR VOLUME 92.4 fL (81-99); MONOCYTES # (AUTO) 0.6 (0.2-0.8); MONOCYTES % 6.1 % (4.4-11.3); NEUTROPHILS # (AUTO) 7.4 (2.1-6.9); NEUTROPHILS % 73.8 % (38.7-80.0); PLATELET COUNT 209 x10e3/uL (140-360); RED BLOOD COUNT 3.17 x10e6/uL (3.6-5.1); RED CELL DISTRIBUTION WIDTH 14.9 % (11.7-14.4); WHITE BLOOD COUNT 10.01 x10e3/uL (4.8-10.8)
[2024-11-17 06:23] LABS: ALBUMIN 2.2 g/dL (3.5-5.0); ALBUMIN/GLOBULIN RATIO 0.6 (0.8-2.0); BILIRUBIN,TOTAL 0.6 mg/dL (0.2-1.2); CALCIUM 8.5 mg/dL (8.4-10.2); CREATININE, SERUM 1.45 mg/dL (0.57-1.11); MAGNESIUM 1.7 MG/DL (1.3-2.1); TOTAL PROTEIN 5.9 g/dL (6.5-8.1)
[2024-11-17 06:33] LABS: TROPONIN I 0.002 ng/mL (0-0.300)
[2024-11-17] MEDS: MAGNESIUM SULFATE 2GM/50ML 50 ML IV ONE (12:50)
[2024-11-17] MEDS: QUETIAPINE FUMARATE 25 MG TAB PO SCH (21:32)
[2024-11-17] MEDS: APIXABAN 5 MG TABLET PO SCH (21:57)
[2024-11-18] VITALS (8 sets, daily range): BP systolic 95–133; BP diastolic 49–66; PULSE 52–62; RESP 16–20; TEMP 97.3–98.7; O2SAT 96–100
[2024-11-18 08:26] LABS: BASOPHILS # (AUTO) 0.1 (0.0-0.1); BASOPHILS % 0.6 % (0.0-1.0); EOSINOPHILS # (AUTO) 0.2 (0.0-0.4); EOSINOPHILS % 2.2 % (0.0-6.0); HEMATOCRIT 26.6 % (34.2-44.1); HEMOGLOBIN 8.7 g/dL (12.0-16.0); LYMPHOCYTES # (AUTO) 1.2 (1.0-3.2); LYMPHOCYTES % 13.3 % (18.0-39.1); MEAN CORPUSCULAR HEMOGLOBIN 30.2 pg (28-32); MEAN CORPUSCULAR HGB CONC 32.7 g/dL (31-35); MEAN CORPUSCULAR VOLUME 92.4 fL (81-99); MONOCYTES # (AUTO) 0.6 (0.2-0.8); MONOCYTES % 7.3 % (4.4-11.3); NEUTROPHILS # (AUTO) 6.6 (2.1-6.9); NEUTROPHILS % 75.3 % (38.7-80.0); PLATELET COUNT 202 x10e3/uL (140-360); RED BLOOD COUNT 2.88 x10e6/uL (3.6-5.1); RED CELL DISTRIBUTION WIDTH 15.1 % (11.7-14.4); WHITE BLOOD COUNT 8.77 x10e3/uL (4.8-10.8)
[2024-11-18 08:54] LABS: ALBUMIN 2.2 g/dL (3.5-5.0); ALBUMIN/GLOBULIN RATIO 0.7 (0.8-2.0); ANION GAP 13.9 mmol/L (8-16); BILIRUBIN,TOTAL 0.4 mg/dL (0.2-1.2); CALCIUM 8.1 mg/dL (8.4-10.2); CREATININE, SERUM 1.56 mg/dL (0.57-1.11); MAGNESIUM 2.2 MG/DL (1.3-2.1); POTASSIUM 3.9 mmol/L (3.5-5.1); TOTAL PROTEIN 5.4 g/dL (6.5-8.1)
[2024-11-19] VITALS (10 sets, daily range): BP systolic 118–142; BP diastolic 49–64; PULSE 56–75; RESP 16–18; TEMP 97.7–98.6; O2SAT 95–100
[2024-11-19] MEDS: METRONIDAZOLE 500MG/NS 100ML 100 ML IV SCH (15:32)
[2024-11-19] MEDS ORDERED: ENOXAPARIN INJ 80 MG/0.8 ML SYR SC SCH (21:00)
[2024-11-20] VITALS (7 sets, daily range): BP systolic 120–136; BP diastolic 56–88; PULSE 60–63; RESP 18–20; TEMP 97.6–98.2; O2SAT 96–100
[2024-11-20 05:42] LABS: BASOPHILS # (AUTO) 0.1 (0.0-0.1); BASOPHILS % 0.6 % (0.0-1.0); EOSINOPHILS # (AUTO) 0.3 (0.0-0.4); HEMATOCRIT 26.1 % (34.2-44.1); HEMOGLOBIN 8.4 g/dL (12.0-16.0); LYMPHOCYTES # (AUTO) 2.2 (1.0-3.2); MEAN CORPUSCULAR HGB CONC 32.2 g/dL (31-35); MEAN CORPUSCULAR VOLUME 93.2 fL (81-99); MONOCYTES # (AUTO) 0.7 (0.2-0.8); MONOCYTES % 7.4 % (4.4-11.3); NEUTROPHILS # (AUTO) 6.2 (2.1-6.9); NEUTROPHILS % 64.9 % (38.7-80.0); PLATELET COUNT 205 x10e3/uL (140-360); RED CELL DISTRIBUTION WIDTH 15.7 % (11.7-14.4); WHITE BLOOD COUNT 9.47 x10e3/uL (4.8-10.8)
[2024-11-20 06:22] LABS: ALBUMIN 1.9 g/dL (3.5-5.0); ALBUMIN/GLOBULIN RATIO 0.6 (0.8-2.0); ANION GAP 13.4 mmol/L (8-16); BILIRUBIN,TOTAL 0.5 mg/dL (0.2-1.2); CALCIUM 8.6 mg/dL (8.4-10.2); CREATININE, SERUM 1.43 mg/dL (0.57-1.11); MAGNESIUM 1.9 MG/DL (1.3-2.1); TOTAL PROTEIN 5.3 g/dL (6.5-8.1)
[2024-11-20 06:26] LABS: POTASSIUM 3.4 mmol/L (3.5-5.1)
[2024-11-20] MEDS: POTASSIUM CHLORIDE 10MEQ EA PO ONE (14:38)
[2024-11-20] MEDS ORDERED: [UNRECOGNIZED DRUG - OTHER] PO (16:18)
[2024-11-20] MEDS: VANCOMYCIN HCL 125 MG CAPSULE PO SCH (16:39)
[2024-11-20] MEDS: DRONABINOL 2.5MG PO SCH (16:39)
[2024-11-21] VITALS (8 sets, daily range): BP systolic 113–140; BP diastolic 46–60; PULSE 60–70; RESP 18–19; TEMP 96.6–98.6; O2SAT 96–100
[2024-11-21 06:57] LABS: BASOPHILS % 0.2 % (0.0-1.0); EOSINOPHILS # (AUTO) 0.1 (0.0-0.4); EOSINOPHILS % 1.3 % (0.0-6.0); HEMATOCRIT 28.5 % (34.2-44.1); HEMOGLOBIN 9.2 g/dL (12.0-16.0); LYMPHOCYTES # (AUTO) 0.6 (1.0-3.2); LYMPHOCYTES % 5.4 % (18.0-39.1); MEAN CORPUSCULAR HEMOGLOBIN 29.5 pg (28-32); MEAN CORPUSCULAR HGB CONC 32.3 g/dL (31-35); MEAN CORPUSCULAR VOLUME 91.3 fL (81-99); MONOCYTES # (AUTO) 0.3 (0.2-0.8); MONOCYTES % 2.6 % (4.4-11.3); NEUTROPHILS # (AUTO) 9.5 (2.1-6.9); NEUTROPHILS % 89.5 % (38.7-80.0); PLATELET COUNT 295 x10e3/uL (140-360); RED BLOOD COUNT 3.12 x10e6/uL (3.6-5.1); RED CELL DISTRIBUTION WIDTH 15.8 % (11.7-14.4); WHITE BLOOD COUNT 10.64 x10e3/uL (4.8-10.8)
[2024-11-21 07:27] LABS: ANION GAP 16.8 mmol/L (8-16); CALCIUM 8.7 mg/dL (8.4-10.2); CREATININE, SERUM 1.42 mg/dL (0.57-1.11); POTASSIUM 3.8 mmol/L (3.5-5.1)
[2024-11-21 09:38] LABS: BAND NEUTROPHILS % (MANUAL) 1 %; EOSINOPHILS % (MANUAL) 1 % (0-7); LYMPHOCYTES % (MANUAL) 7 % (19-48); MONOCYTES % (MANUAL) 3 % (3.4-9.0); NEUTROPHILS % (MANUAL) 88 % (40-74); PLATELET ESTIMATE ADEQUATE; PLATELET MORPHOLOGY COMMENT NORMAL
[2024-11-21 11:38] LABS: ALBUMIN 2.2 g/dL (3.5-5.0); BILIRUBIN,DIRECT 0.2 mg/dL (0.0-0.5); BILIRUBIN,TOTAL 0.4 mg/dL (0.2-1.2); TOTAL PROTEIN 6.2 g/dL (6.5-8.1)
[2024-11-22] VITALS (9 sets, daily range): BP systolic 111–149; BP diastolic 46–69; PULSE 57–63; RESP 17–20; TEMP 96.6–99.5; O2SAT 96–100
[2024-11-22 05:39] LABS: BASOPHILS % 0.3 % (0.0-1.0); EOSINOPHILS # (AUTO) 0.2 (0.0-0.4); EOSINOPHILS % 3.5 % (0.0-6.0); HEMATOCRIT 24.9 % (34.2-44.1); LYMPHOCYTES # (AUTO) 1.4 (1.0-3.2); LYMPHOCYTES % 20.6 % (18.0-39.1); MEAN CORPUSCULAR HEMOGLOBIN 29.5 pg (28-32); MEAN CORPUSCULAR HGB CONC 31.3 g/dL (31-35); MONOCYTES # (AUTO) 0.4 (0.2-0.8); MONOCYTES % 6.2 % (4.4-11.3); NEUTROPHILS # (AUTO) 4.4 (2.1-6.9); NEUTROPHILS % 67.1 % (38.7-80.0); PLATELET COUNT 281 x10e3/uL (140-360); RED BLOOD COUNT 2.64 x10e6/uL (3.6-5.1); RED CELL DISTRIBUTION WIDTH 15.9 % (11.7-14.4); WHITE BLOOD COUNT 6.61 x10e3/uL (4.8-10.8)
[2024-11-22 05:53] LABS: HEMOGLOBIN 7.8 g/dL (12.0-16.0); MEAN CORPUSCULAR VOLUME 94.3 fL (81-99)
[2024-11-22 06:26] LABS: ALBUMIN 1.9 g/dL (3.5-5.0); ALBUMIN/GLOBULIN RATIO 0.6 (0.8-2.0); ANION GAP 11.2 mmol/L (8-16); BILIRUBIN,TOTAL 0.3 mg/dL (0.2-1.2); CALCIUM 8.2 mg/dL (8.4-10.2); CREATININE, SERUM 1.41 mg/dL (0.57-1.11)
[2024-11-22 06:34] LABS: POTASSIUM 3.2 mmol/L (3.5-5.1)
[2024-11-22] MEDS: POTASSIUM CHLORIDE 10MEQ EA PO ONE (09:39)
[2024-11-22] MEDS ORDERED: METOCLOPRAMIDE HCL 10 MG/2ML VIAL IV SCH (16:30)
[2024-11-22] MEDS: METOCLOPRAMIDE HCL 10 MG/2ML VIAL IV SCH (17:23)
[2024-11-23] VITALS (12 sets, daily range): BP systolic 103–155; BP diastolic 53–96; PULSE 58–86; RESP 16–20; TEMP 97.5–98.5; O2SAT 96–100
[2024-11-23 06:36] LABS: BASOPHILS # (AUTO) 0.1 (0.0-0.1); BASOPHILS % 0.7 % (0.0-1.0); EOSINOPHILS # (AUTO) 0.2 (0.0-0.4); EOSINOPHILS % 2.5 % (0.0-6.0); HEMATOCRIT 28.8 % (34.2-44.1); HEMOGLOBIN 9.1 g/dL (12.0-16.0); LYMPHOCYTES # (AUTO) 2.3 (1.0-3.2); LYMPHOCYTES % 29.5 % (18.0-39.1); MEAN CORPUSCULAR HEMOGLOBIN 30.2 pg (28-32); MEAN CORPUSCULAR HGB CONC 31.6 g/dL (31-35); MEAN CORPUSCULAR VOLUME 95.7 fL (81-99); MONOCYTES # (AUTO) 0.5 (0.2-0.8); MONOCYTES % 6.9 % (4.4-11.3); NEUTROPHILS # (AUTO) 4.4 (2.1-6.9); NEUTROPHILS % 57.3 % (38.7-80.0); PLATELET COUNT 246 x10e3/uL (140-360); RED BLOOD COUNT 3.01 x10e6/uL (3.6-5.1); RED CELL DISTRIBUTION WIDTH 15.9 % (11.7-14.4); WHITE BLOOD COUNT 7.64 x10e3/uL (4.8-10.8)
[2024-11-23 07:15] LABS: ALBUMIN/GLOBULIN RATIO 0.6 (0.8-2.0); ANION GAP 11.8 mmol/L (8-16); BILIRUBIN,TOTAL 0.3 mg/dL (0.2-1.2); CALCIUM 8.3 mg/dL (8.4-10.2); CREATININE, SERUM 1.31 mg/dL (0.57-1.11); MAGNESIUM 1.7 MG/DL (1.3-2.1); POTASSIUM 3.8 mmol/L (3.5-5.1); TOTAL PROTEIN 5.4 g/dL (6.5-8.1)
[2024-11-24] VITALS (9 sets, daily range): BP systolic 138–153; BP diastolic 52–78; PULSE 60–65; RESP 16–20; TEMP 97.4–98; O2SAT 95–100
[2024-11-24 06:41] LABS: BASOPHILS # (AUTO) 0.1 (0.0-0.1); BASOPHILS % 0.6 % (0.0-1.0); EOSINOPHILS # (AUTO) 0.2 (0.0-0.4); EOSINOPHILS % 2.4 % (0.0-6.0); HEMATOCRIT 29.4 % (34.2-44.1); HEMOGLOBIN 9.2 g/dL (12.0-16.0); LYMPHOCYTES # (AUTO) 2.8 (1.0-3.2); LYMPHOCYTES % 34.3 % (18.0-39.1); MEAN CORPUSCULAR HEMOGLOBIN 29.6 pg (28-32); MEAN CORPUSCULAR HGB CONC 31.3 g/dL (31-35); MEAN CORPUSCULAR VOLUME 94.5 fL (81-99); MONOCYTES # (AUTO) 0.5 (0.2-0.8); MONOCYTES % 6.2 % (4.4-11.3); NEUTROPHILS # (AUTO) 4.3 (2.1-6.9); NEUTROPHILS % 53.3 % (38.7-80.0); PLATELET COUNT 275 x10e3/uL (140-360); RED BLOOD COUNT 3.11 x10e6/uL (3.6-5.1); WHITE BLOOD COUNT 8.07 x10e3/uL (4.8-10.8)
[2024-11-24 07:09] LABS: ALBUMIN 2.2 g/dL (3.5-5.0); ALBUMIN/GLOBULIN RATIO 0.6 (0.8-2.0); ANION GAP 12.9 mmol/L (8-16); BILIRUBIN,TOTAL 0.4 mg/dL (0.2-1.2); CALCIUM 8.2 mg/dL (8.4-10.2); CREATININE, SERUM 1.09 mg/dL (0.57-1.11); POTASSIUM 3.9 mmol/L (3.5-5.1); TOTAL PROTEIN 5.9 g/dL (6.5-8.1)
[2024-11-24] MEDS ORDERED: PROPOFOL IV EMULSION 10 MG/ML 20 ML VIAL ONE (13:06)
[2024-11-24] MEDS ORDERED: LIDOCAINE HCL 2% LOCAL INJ 5 ML SDV VIAL INJ ONE (13:06)
[2024-11-24 13:52] LABS: INR 1.11; PARTIAL THROMBOPLASTIN TIME 25.6 seconds (23.8-35.5); PROTHROMBIN TIME 12.1 seconds (11.9-14.5)
[2024-11-24] MEDS ORDERED: EPHEDRINE SULFATE INJ 50 MG/ML VIAL ONE (15:53)
[2024-11-25] VITALS (11 sets, daily range): BP systolic 118–182; BP diastolic 56–75; PULSE 52–65; RESP 16–21; TEMP 98.1–98.7; O2SAT 97–100
[2024-11-25 06:31] LABS: BASOPHILS % 0.4 % (0.0-1.0); EOSINOPHILS # (AUTO) 0.1 (0.0-0.4); HEMATOCRIT 27.2 % (34.2-44.1); HEMOGLOBIN 8.7 g/dL (12.0-16.0); LYMPHOCYTES # (AUTO) 1.7 (1.0-3.2); LYMPHOCYTES % 24.4 % (18.0-39.1); MEAN CORPUSCULAR HEMOGLOBIN 29.6 pg (28-32); MEAN CORPUSCULAR VOLUME 92.5 fL (81-99); MONOCYTES # (AUTO) 0.5 (0.2-0.8); MONOCYTES % 6.9 % (4.4-11.3); NEUTROPHILS # (AUTO) 4.6 (2.1-6.9); NEUTROPHILS % 64.8 % (38.7-80.0); PLATELET COUNT 273 x10e3/uL (140-360); RED BLOOD COUNT 2.94 x10e6/uL (3.6-5.1); RED CELL DISTRIBUTION WIDTH 16.1 % (11.7-14.4); WHITE BLOOD COUNT 7.06 x10e3/uL (4.8-10.8)
[2024-11-25 06:41] LABS: ALBUMIN 2.2 g/dL (3.5-5.0); ALBUMIN/GLOBULIN RATIO 0.6 (0.8-2.0); ANION GAP 12.8 mmol/L (8-16); BILIRUBIN,TOTAL 0.2 mg/dL (0.2-1.2); CALCIUM 8.2 mg/dL (8.4-10.2); CREATININE, SERUM 1.07 mg/dL (0.57-1.11); POTASSIUM 3.8 mmol/L (3.5-5.1); TOTAL PROTEIN 5.7 g/dL (6.5-8.1)
[2024-11-25] MEDS: ACETAMINOPHEN 325 MG TAB PO PRN (13:54)
[2024-11-26] VITALS (8 sets, daily range): BP systolic 93–157; BP diastolic 48–74; PULSE 55–72; RESP 16–21; TEMP 98.6–99.4; O2SAT 94–99
[2024-11-26 06:51] LABS: BASOPHILS % 0.3 % (0.0-1.0); EOSINOPHILS # (AUTO) 0.1 (0.0-0.4); EOSINOPHILS % 1.1 % (0.0-6.0); HEMATOCRIT 25.9 % (34.2-44.1); HEMOGLOBIN 8.3 g/dL (12.0-16.0); LYMPHOCYTES # (AUTO) 2.1 (1.0-3.2); LYMPHOCYTES % 21.5 % (18.0-39.1); MEAN CORPUSCULAR HEMOGLOBIN 29.6 pg (28-32); MEAN CORPUSCULAR VOLUME 92.5 fL (81-99); MONOCYTES # (AUTO) 0.6 (0.2-0.8); MONOCYTES % 6.4 % (4.4-11.3); NEUTROPHILS # (AUTO) 6.7 (2.1-6.9); NEUTROPHILS % 69.4 % (38.7-80.0); PLATELET COUNT 274 x10e3/uL (140-360); RED CELL DISTRIBUTION WIDTH 16.2 % (11.7-14.4); WHITE BLOOD COUNT 9.59 x10e3/uL (4.8-10.8)
[2024-11-26 07:28] LABS: ALBUMIN/GLOBULIN RATIO 0.6 (0.8-2.0); ANION GAP 11.8 mmol/L (8-16); BILIRUBIN,TOTAL 0.3 mg/dL (0.2-1.2); CREATININE, SERUM 1.2 mg/dL (0.57-1.11); POTASSIUM 3.8 mmol/L (3.5-5.1); TOTAL PROTEIN 5.3 g/dL (6.5-8.1)
[2024-11-27] VITALS (9 sets, daily range): BP systolic 121–164; BP diastolic 46–81; PULSE 57–69; RESP 17–18; TEMP 97.7–98.7; O2SAT 98–100
[2024-11-27 05:50] LABS: BASOPHILS % 0.3 % (0.0-1.0); EOSINOPHILS # (AUTO) 0.1 (0.0-0.4); EOSINOPHILS % 1.1 % (0.0-6.0); HEMATOCRIT 29.2 % (34.2-44.1); HEMOGLOBIN 9.2 g/dL (12.0-16.0); LYMPHOCYTES # (AUTO) 2.8 (1.0-3.2); LYMPHOCYTES % 22.8 % (18.0-39.1); MEAN CORPUSCULAR HGB CONC 31.5 g/dL (31-35); MEAN CORPUSCULAR VOLUME 95.1 fL (81-99); MONOCYTES # (AUTO) 0.7 (0.2-0.8); MONOCYTES % 5.4 % (4.4-11.3); NEUTROPHILS # (AUTO) 8.5 (2.1-6.9); NEUTROPHILS % 69.6 % (38.7-80.0); PLATELET COUNT 259 x10e3/uL (140-360); RED BLOOD COUNT 3.07 x10e6/uL (3.6-5.1); RED CELL DISTRIBUTION WIDTH 16.1 % (11.7-14.4)
[2024-11-27 06:54] LABS: ALBUMIN 2.1 g/dL (3.5-5.0); ALBUMIN/GLOBULIN RATIO 0.6 (0.8-2.0); ANION GAP 11.2 mmol/L (8-16); BILIRUBIN,TOTAL 0.3 mg/dL (0.2-1.2); CALCIUM 8.4 mg/dL (8.4-10.2); POTASSIUM 4.2 mmol/L (3.5-5.1); TOTAL PROTEIN 5.9 g/dL (6.5-8.1)
[2024-11-27 07:19] LABS: CREATININE, SERUM 1.27 mg/dL (0.57-1.11)
[2024-11-28] VITALS (8 sets, daily range): BP systolic 137–177; BP diastolic 52–71; PULSE 60–70; RESP 17–18; TEMP 98.1–98.8; O2SAT 97–100
[2024-11-28 06:36] LABS: EOSINOPHILS # (AUTO) 0.2 (0.0-0.4); EOSINOPHILS % 1.8 % (0.0-6.0); MEAN CORPUSCULAR HEMOGLOBIN 29.9 pg (28-32); MONOCYTES # (AUTO) 0.7 (0.2-0.8)
[2024-11-28 07:09] LABS: ALBUMIN 1.9 g/dL (3.5-5.0); ALBUMIN/GLOBULIN RATIO 0.5 (0.8-2.0); ANION GAP 11.6 mmol/L (8-16); BILIRUBIN,TOTAL 0.3 mg/dL (0.2-1.2); CALCIUM 8.3 mg/dL (8.4-10.2); CREATININE, SERUM 1.05 mg/dL (0.57-1.11); MAGNESIUM 1.8 MG/DL (1.3-2.1); POTASSIUM 4.6 mmol/L (3.5-5.1); TOTAL PROTEIN 5.5 g/dL (6.5-8.1)
[2024-11-28 07:30] LABS: BASOPHILS % 0.3 % (0.0-1.0); HEMATOCRIT 27.6 % (34.2-44.1); HEMOGLOBIN 8.8 g/dL (12.0-16.0); LYMPHOCYTES # (AUTO) 2.4 (1.0-3.2); LYMPHOCYTES % 22.3 % (18.0-39.1); MEAN CORPUSCULAR HGB CONC 31.9 g/dL (31-35); MEAN CORPUSCULAR VOLUME 93.9 fL (81-99); MONOCYTES % 6.6 % (4.4-11.3); NEUTROPHILS # (AUTO) 7.2 (2.1-6.9); NEUTROPHILS % 68.5 % (38.7-80.0); PLATELET COUNT 283 x10e3/uL (140-360); RED BLOOD COUNT 2.94 x10e6/uL (3.6-5.1); RED CELL DISTRIBUTION WIDTH 16.3 % (11.7-14.4); WHITE BLOOD COUNT 10.55 x10e3/uL (4.8-10.8)
[2024-11-28] MEDS ORDERED: DIFLUCAN100 MG PO (12:29)
[2024-11-28] MEDS ORDERED: VANCOMYCIN HCL125 MG PO (12:29)
[2024-11-28] MEDS ORDERED: PAROXETINE HCL20 MG PO (12:29)
== END 2024-11-28 17:23 | DRG 757 ==
LOC: ER 15:16 → ERHOLD 17:27 → MED/SURG3 18:17 → OBSVTOIN 11-16 11:29
PROVIDERS: ADMIT Internal Medicine; ATTEND Internal Medicine
PROC: 0FP4X0Z Removal of Drainage Device from Gallbladder, External Approach (ICD-10-PCS; 2024-11-20)
PROC: 0DH63UZ Insertion of Feeding Device into Stomach, Percutaneous Approach (ICD-10-PCS; principal; 2024-11-24 15:38)
PROC: 3E0G76Z Introduction of Nutritional Substance into Upper GI, Via Natural or Artificial Opening (ICD-10-PCS; 2024-11-25)
DX: B37.49 Other urogenital candidiasis (principal); E43 Unspecified severe protein-calorie malnutrition; G93.41 Metabolic encephalopathy; J18.9 Pneumonia, unspecified organism; N18.6 End stage renal disease; A09 Infectious gastroenteritis and colitis, unspecified; N18.4 Chronic kidney disease, stage 4 (severe); F33.1 Major depressive disorder, recurrent, moderate; K80.10 Calculus of gallbladder with chronic cholecystitis without obstruction; R44.3 Hallucinations, unspecified; F03.B18 Unspecified dementia, moderate, with other behavioral disturbance; J98.11 Atelectasis; T85.520A Displacement of bile duct prosthesis, initial encounter; I12.9 Hypertensive chronic kidney disease with stage 1 through stage 4 chronic kidney disease, or unspecified chronic kidney disease; I48.0 Paroxysmal atrial fibrillation; Z79.01 Long term (current) use of anticoagulants; I49.5 Sick sinus syndrome; Z95.0 Presence of cardiac pacemaker; I95.1 Orthostatic hypotension; E11.22 Type 2 diabetes mellitus with diabetic chronic kidney disease; E03.9 Hypothyroidism, unspecified; K21.9 Gastro-esophageal reflux disease without esophagitis; E78.5 Hyperlipidemia, unspecified; I35.0 Nonrheumatic aortic (valve) stenosis; D63.8 Anemia in other chronic diseases classified elsewhere; I65.23 Occlusion and stenosis of bilateral carotid arteries; R29.6 Repeated falls; Z43.4 Encounter for attention to other artificial openings of digestive tract; Z71.3 Dietary counseling and surveillance; Z68.27 Body mass index [BMI] 27.0-27.9, adult; Z71.81 Spiritual or religious counseling; R62.7 Adult failure to thrive; Z74.01 Bed confinement status; F41.8 Other specified anxiety disorders; K29.50 Unspecified chronic gastritis without bleeding; K20.90 Esophagitis, unspecified without bleeding; Y83.8 Other surgical procedures as the cause of abnormal reaction of the patient, or of later complication, without mention of misadventure at the time of the procedure; Y92.230 Patient room in hospital as the place of occurrence of the external cause; W19.XXXD Unspecified fall, subsequent encounter; Z79.899 Other long term (current) drug therapy
CPT/HCPCS: 36415; 43246; 51701; 70450; 70551; 71045; 71250; 74176; 76705; 80048; 80053; 80076; 81001; 82140; 82948; 83735; 84443; 84484; 85025; 85610; 85730; 86592; 87086; 93005; 93880; 94799; 96372; 99252; 99284; G0378; J0690; J0696; J2003; J2765; J3475; J7030; J7050

== ENCOUNTER 2025-04-11 13:22 | Inpatient (IN) | payer MEDICARE ==
[~2025-04-11] VITALS: Ht 165.1 cm; Wt 72.6 kg
[~2025-04-11 13:22] MED LIST changes: +DIFLUCAN100 MG PO; +ONDANSETRON ODT4 MG PO; +PAROXETINE HCL20 MG PO; +POLYETHYLENE GL17 GM PO; +VANCOMYCIN HCL125 MG PO; +[UNRECOGNIZED DRUG - OTHER] PO
[2025-04-11 13:27] VITALS: TEMP 98.7
[2025-04-11] MEDS ORDERED: SODIUM CHLORIDE FLUSH 10 ML SYR INJ PRN (13:45)
[2025-04-11 13:51] LABS: BASOPHILS % 0.6 % (0.0-1.0); EOSINOPHILS % 2.6 % (0.0-6.0); LYMPHOCYTES % 19.7 % (18.0-39.1); MONOCYTES % 8.1 % (4.4-11.3); NEUTROPHILS % 68.8 % (38.7-80.0); RED CELL DISTRIBUTION WIDTH 14.9 % (11.7-14.4)
[2025-04-11 14:03] LABS: EST GLOMERULAR FILTRATION RATE 38 ML/MIN (>=60); PHOSPHORUS 4.2 MG/DL (2.3-4.7)
[2025-04-11 14:24] LABS: INR 1.0
[2025-04-11 14:54] LABS: ETHANOL < 10.0 mg/dL (0.0-10.0)
[2025-04-11 15:16] LABS: AMPHETAMINES SCREEN,URINE NEGATIVE (NEGATIVE); CANNABINOIDS SCREEN,URINE NEGATIVE (NEGATIVE); COCAINE SCREEN,URINE NEGATIVE (NEGATIVE); METHADONE SCREEN, URINE NEGATIVE (NEGATIVE); OPIATES SCREEN,URINE NEGATIVE (NEGATIVE)
[2025-04-11 15:18] LABS: LEUKOCYTE ESTERASE ,URINE TRACE (NEGATIVE); URINE UROBILINOGEN 1 mg/dL (0.2 - 1)
[2025-04-11 15:19] LABS: PROTEIN,URINE DIPSTICK >=300 (NEGATIVE)
[2025-04-11] MEDS ORDERED: HUMALOG100 UNIT/1 (15:34)
[2025-04-11] MEDS ORDERED: METOPROLOL TART25 MG PEG (15:34)
[2025-04-11] MEDS ORDERED: METHENAMINE HIPP1 GM PEG (15:34)
[2025-04-11] MEDS ORDERED: LANTUS 3ML100 UNITS/ SQ (15:34)
[2025-04-11 15:35] LABS: EPITHELIAL CELLS,URINE RARE /LPF; WBC,URINE (MAN) 21-50 /HPF (0-5)
[2025-04-11] MEDS ORDERED: ONDANSETRON HCL INJ 2MG/ML 2ML 2 MG/ML VIAL IV PRN ×2 (15:45→22:15)
[2025-04-11] MEDS: SODIUM CHLORIDE 0.9% 1000ML 1,000 ML IV SCH (16:24)
[2025-04-11 17:37] VITALS: RESP 18
[2025-04-11 21:15] VITALS: PULSE 76
[2025-04-11 21:26] VITALS: BP 126/57; PULSE 67; RESP 18; TEMP 98; O2SAT 100
[2025-04-11 22:00] VITALS: BP 126/57; PULSE 67; RESP 18; TEMP 98; O2SAT 100
[2025-04-11] MEDS ORDERED: BISACODYL 10 MG SUPP PR PRN (22:15)
[2025-04-11] MEDS ORDERED: POLYETHYLENE GLYCOL 3350 17 GM PACK PO PRN (22:15)
[2025-04-11] MEDS ORDERED: DEXTROSE 50% SYRINGE 50 ML IV PRN (22:15)
[2025-04-11] MEDS ORDERED: ACETAMINOPHEN 325 MG TAB PO PRN (22:15)
[2025-04-12] VITALS (9 sets, daily range): BP systolic 134–177; BP diastolic 43–89; PULSE 60–76; RESP 17–18; TEMP 97.4–97.9; O2SAT 95–100
[2025-04-12 05:52] LABS: ABG BASE EXCESS 6.0 mmol/L (-2 - 3); ABG HCO3 30 mmol/L (22-26); ABG OXYGEN SATURATION 77.0 % (95-98); ABG PCO2 50 mmHg (35-45); ABG PH 7.40 (7.35-7.45); ABG PO2 43 mmHg (80-105); ABG TCO2 32
[2025-04-12 07:11] LABS: BASOPHILS % 1.7 % (0.0-1.0); EOSINOPHILS % 4.6 % (0.0-6.0); LYMPHOCYTES % 29.0 % (18.0-39.1); MONOCYTES % 8.4 % (4.4-11.3); NEUTROPHILS % 56.0 % (38.7-80.0); RED CELL DISTRIBUTION WIDTH 15.1 % (11.7-14.4)
[2025-04-12] MEDS: INSULIN LISPRO 100 UNIT/1 ML 3ML VIAL SQ SCH (07:30)
[2025-04-12 07:44] LABS: EST GLOMERULAR FILTRATION RATE 45.0 ML/MIN (>=60)
[2025-04-12] MEDS: METOPROLOL TARTRATE 25 MG TAB PEG SCH (09:13)
[2025-04-12] MEDS: DOCUSATE SODIUM 100 MG CAP PO SCH (09:13)
[2025-04-12] MEDS: AMLODIPINE BESYLATE 5 MG TAB PO SCH (09:13)
[2025-04-12] MEDS: PAROXETINE HCL 20 MG TAB PO SCH (09:13)
[2025-04-12] MEDS: APIXABAN 5 MG TABLET PO SCH (09:13)
[2025-04-12] MEDS: AMIODARONE HCL 200 MG TAB PO SCH (09:13)
[2025-04-12] MEDS: SENNOSIDES 8.6 MG TAB PO SCH (09:13)
[2025-04-12] MEDS: ATORVASTATIN 20 MG TAB PO SCH (20:54)
[2025-04-12] MEDS: DONEPEZIL HCL 5 MG TAB PO SCH (20:54)
[2025-04-12] MEDS: INSULIN GLARGINE 100 UNITS/ML VIAL SQ SCH (21:09)
[2025-04-13] VITALS (7 sets, daily range): BP systolic 134–162; BP diastolic 46–75; PULSE 59–98; RESP 17–20; TEMP 97.2–98.4; O2SAT 94–100
[2025-04-13 07:09] LABS: BASOPHILS % 1.0 % (0.0-1.0); EOSINOPHILS % 4.6 % (0.0-6.0); LYMPHOCYTES % 21.1 % (18.0-39.1); MONOCYTES % 8.7 % (4.4-11.3); NEUTROPHILS % 64.2 % (38.7-80.0); RED CELL DISTRIBUTION WIDTH 14.6 % (11.7-14.4)
[2025-04-13 07:26] LABS: EST GLOMERULAR FILTRATION RATE 78.0 ML/MIN (>=60)
[2025-04-13] MEDS: MEROPENEM 1 GM in SODIUM CHLORIDE 0.9% 100 ML IV SCH (11:34)
[2025-04-13 12:18] LABS: % IRON SATURATION 20.0 % (15-50)
[2025-04-13] MEDS: CALCIUM CARBONATE 500 MG CHEWABLE TABS GT SCH (12:18)
[2025-04-14] VITALS (7 sets, daily range): BP systolic 112–178; BP diastolic 43–99; PULSE 58–75; RESP 16–20; TEMP 97.1–98.3; O2SAT 98–100
[2025-04-14] MEDS: HYDRALAZINE HCL 20 MG/ML VIAL IV PRN (05:44)
[2025-04-14 06:44] LABS: BASOPHILS % 0.6 % (0.0-1.0); EOSINOPHILS % 3.0 % (0.0-6.0); LYMPHOCYTES % 19.6 % (18.0-39.1); MONOCYTES % 7.5 % (4.4-11.3); NEUTROPHILS % 68.8 % (38.7-80.0); RED CELL DISTRIBUTION WIDTH 14.6 % (11.7-14.4)
[2025-04-14 07:27] LABS: EST GLOMERULAR FILTRATION RATE 68.0 ML/MIN (>=60)
[2025-04-14] MEDS: Vancomycin IV 1 GM in SODIUM CHLORIDE 0.9% 250ML 250 ML IV SCH (11:55)
[2025-04-14] MEDS: APIXABAN 5 MG TABLET PO SCH (20:41)
[2025-04-15] VITALS (9 sets, daily range): BP systolic 121–163; BP diastolic 48–72; PULSE 60–68; RESP 17–20; TEMP 97.4–98.2; O2SAT 96–100
[2025-04-15] MEDS: PIPERACILLIN/TAZOBACTAM 4.5 GM in SODIUM CHLORIDE 0.9% 100 ML IV SCH (15:30)
[2025-04-16 03:00] VITALS: BP 152/59; PULSE 58; RESP 18; TEMP 97.4; O2SAT 100
[2025-04-16 05:27] LABS: BASOPHILS % 1.0 % (0.0-1.0); EOSINOPHILS % 5.5 % (0.0-6.0); LYMPHOCYTES % 24.3 % (18.0-39.1); MONOCYTES % 8.0 % (4.4-11.3); NEUTROPHILS % 60.9 % (38.7-80.0); RED CELL DISTRIBUTION WIDTH 15.0 % (11.7-14.4)
[2025-04-16 06:16] LABS: EST GLOMERULAR FILTRATION RATE 62.0 ML/MIN (>=60)
[2025-04-16 08:00] VITALS: BP 125/59; PULSE 60; RESP 20; TEMP 97.3; O2SAT 98
[2025-04-16 08:27] VITALS: BP 125/59; PULSE 60; RESP 20; TEMP 97.6; O2SAT 98
[2025-04-16] MEDS: IRON-VITAMIN-MINERAL CAPSULE PO SCH (09:19)
[2025-04-16 12:00] VITALS: BP 155/65; PULSE 62; RESP 20; TEMP 97.6; O2SAT 98
[2025-04-16] MEDS: LEVOFLOXACIN 500 MG TAB PO SCH (12:48)
[2025-04-16 16:03] VITALS: BP 135/64; PULSE 62; RESP 19; TEMP 97.7; O2SAT 95
[2025-04-16 17:35] VITALS: BP 135/64; PULSE 62
[2025-04-16] MEDS: LINEZOLID 600 MG TAB PO SCH (17:35)
[2025-04-17 05:58] LABS: HEPATITIS A ANTIBODY IGM (P) Negative; HEPATITIS B CORE AB TOTAL Negative; HEPATITIS B CORE IGM (P) Negative; HEPATITIS B SURFACE AG (P) Negative
[2025-04-17] MEDS ORDERED: LEVOFLOXACIN 500MG/D5W 100ML 100 ML IV SCH (09:00)
== END 2025-04-16 18:20 | DRG 689 ==
LOC: ER 13:29 → ERHOLD 15:44 → MED/SURG3 22:06 → OBSVTOIN 04-12 20:31
PROVIDERS: ADMIT Internal Medicine; ATTEND Internal Medicine
PROC: 02H633Z Insertion of Infusion Device into Right Atrium, Percutaneous Approach (ICD-10-PCS; principal; 2025-04-15)
PROC: B5181ZA Fluoroscopy of Superior Vena Cava using Low Osmolar Contrast, Guidance (ICD-10-PCS; 2025-04-15)
DX: N39.0 Urinary tract infection, site not specified (principal); E43 Unspecified severe protein-calorie malnutrition; G93.41 Metabolic encephalopathy; Z16.12 Extended spectrum beta lactamase (ESBL) resistance; F33.1 Major depressive disorder, recurrent, moderate; N18.4 Chronic kidney disease, stage 4 (severe); B96.1 Klebsiella pneumoniae [K. pneumoniae] as the cause of diseases classified elsewhere; B95.2 Enterococcus as the cause of diseases classified elsewhere; I13.10 Hypertensive heart and chronic kidney disease without heart failure, with stage 1 through stage 4 chronic kidney disease, or unspecified chronic kidney disease; E11.22 Type 2 diabetes mellitus with diabetic chronic kidney disease; Z79.4 Long term (current) use of insulin; K21.9 Gastro-esophageal reflux disease without esophagitis; E66.9 Obesity, unspecified; Z71.3 Dietary counseling and surveillance; I48.0 Paroxysmal atrial fibrillation; Z79.01 Long term (current) use of anticoagulants; F41.8 Other specified anxiety disorders; K74.60 Unspecified cirrhosis of liver; D64.9 Anemia, unspecified; K57.30 Diverticulosis of large intestine without perforation or abscess without bleeding; E78.5 Hyperlipidemia, unspecified; Z68.26 Body mass index [BMI] 26.0-26.9, adult; I35.0 Nonrheumatic aortic (valve) stenosis; R13.10 Dysphagia, unspecified; T18.9XXA Foreign body of alimentary tract, part unspecified, initial encounter; Z98.890 Other specified postprocedural states; K80.20 Calculus of gallbladder without cholecystitis without obstruction; F03.90 Unspecified dementia, unspecified severity, without behavioral disturbance, psychotic disturbance, mood disturbance, and anxiety; Z95.810 Presence of automatic (implantable) cardiac defibrillator; Z91.81 History of falling; Z71.81 Spiritual or religious counseling; Z79.899 Other long term (current) drug therapy
CPT/HCPCS: 36415; 36569; 70450; 71045; 74176; 76705; 76770; 80053; 80202; 80307; 80320; 81001; 82140; 82607; 82728; 82805; 82948; 83540; 83735; 84100; 84443; 84466; 85014; 85018; 85025; 85045; 85610; 85730; 86704; 87086; 87186; 93005; 94760; 99284; G0378; J0360; J0696; J1815; J2185; J2405; J2470; J2543; J3373; J7030; J7050